=== PATIENT | female | born 1985 | race Caucasian/White ===

== ENCOUNTER 2016-10-27 22:18 | Emergency (ER) | payer MEDICARE ==
[2016-10-27] MEDS ORDERED: Sodium Chloride 0.9% 1000 ML 1,000 ML IV STA (22:45)
[2016-10-27] MEDS ORDERED: TORAdol 30 mg Injection IV ONE (22:45)
[2016-10-27] MEDS ORDERED: Ativan 2 MG/1 ML VIAL IV ONE (22:45)
[2016-10-27] MEDS ORDERED: TORAdol 30 mg Injection ONE (22:54)
[2016-10-27] MEDS ORDERED: Sodium Chloride 0.9% 1000 ML 1,000 ML ONE (22:54)
[2016-10-27] MEDS ORDERED: Ativan 2 MG/1 ML VIAL ONE (22:54)
[2016-10-27 23:30] LABS: BASOPHIL % 0.2 % (0.0-0.4); Eosinophil % 2.7 % (0.00-5.0); Granulocytes % 56.4 % (36.0-66.0); Lymphocytes % 33.3 % (24.0-44.0); Mean Cell Volume 91.6 fl (78-100); Monocytes % 7.4 % (0.0-12.0); Platelet Count 204 K/mm3 (150-450); Red Blood Count 3.79 M/mm3 (4.1-5.4); Red Cell Distribution Width 12.4 % (11.5-14.0); White Blood Count 4.9 K/mm3 (4.0-10.5)
[2016-10-27 23:36] LABS: COMPLETE URINE MICROSCOPIC? NO; Collection Type CATH; Ph 5.5 (5-6)
--- NOTE | 2016-10-27 23:39 | ERPHSYRPT ---
- History of Present Illness Time Seen by Provider: 10/27/16 22:39 Source: family ( and sister), EMS Patient Subjective Stated Complaint: per pt's sister, pt has seizure like epidoses when she has pain. has had 15+ episodes today since 2030 Triage Nursing Assessment: pt in bed with eyes closed. does not respond to verbal. pt not able to follow commands. family in [facility] states this is normal for pt when she has these episodes and she will remain nonresponsive until she has pain relief. Physician History: CC: seizure episode Hx: [address] Da Silva and [facility] GI Dr Reyes. She has hx of nonepileptiform seizures diagnosed with video EEG at [facility]. 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 She does not take narcotics so as not to worsened sphincter dysfunction. She usually received ativan and toradol and improves. She went to [facility] and began having intermittent seizure episodes. No provoking incident or stress. She has several children at home. She is accompanied here by sister and . No fall or injury. No recent fever, headache, vomiting. The episodes today are consistent with those of the past. Surg: BTL, GB, vaginal reconstruction Social: Blind form premature macular degeneration ILL: hypothyroidism Allergies/Adverse Reactions: No Known Drug Allergies Allergy (Unverified 10/27/16 22:37) Home Medications: Levothyroxine Sodium 50 Mcg [Synthroid 50 Mcg] 50 mcg PO DAILY 10/27/16 [ History] Hx Tetanus, Diphtheria Vaccination/Date Given: Yes Hx Influenza Vaccination/Date Given: No Hx Pneumococcal Vaccination/Date Given: No Immunizations Up to Date: Yes - Review of Systems Constitutional: No Fever, No Chills Eyes: No Symptoms Ears, Nose, & Throat: No Symptoms Respiratory: No Cough, No Dyspnea Cardiac: No Chest Pain, No Syncope Abdominal/Gastrointestinal: Abdominal Pain, No Nausea, No Vomiting, No Diarrhea Genitourinary Symptoms: No Dysuria Skin: No Rash Neurological: Seizure, No Focal Weakness, No Headache, No Parasthesia All Other Systems: Reviewed and Negative (from family) - Past Medical History Pertinent Past Medical History: Yes Neurological History: Other Endocrine Medical History: Hyperthyroidism Other Medical History: 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 legally blind - Past Surgical History Past Surgical History: Yes Female Surgical History: Tubal Ligation, Other Other Surgical History: vaginal reconstruction - Social History Smoking Status: Never smoker Exposure to second hand smoke: No Drug Use: none Patient Lives Alone: No - Female History Hx Last Menstrual Period: unsure - Nursing Vital Signs Nursing Vital Signs: Initial Vital Signs Temperature 97.9 F Temperature Source Axillary Pulse Rate 88 Respiratory Rate 16 Blood Pressure 118/72 - Physical Exam General Appearance: alert Eye Exam: PERRL/EOMI, other (fluttering of eyes) Ears, Nose, Throat Exam: normal ENT inspection, moist mucous membranes Neck Exam: normal inspection, non-tender, supple Respiratory Exam: normal breath sounds, lungs clear Cardiovascular Exam: regular rate/rhythm, No murmur Gastrointestinal/Abdomen Exam: soft, No tenderness, No distention, No mass, No guarding Back Exam: normal inspection, normal range of motion Extremity Exam: normal inspection, normal range of motion Neurologic Exam: alert, other (she is poorly responsive but does open eyes, squeeze hands and move feet to command.) Skin Exam: warm, dry, No rash SpO2 Interpretation: normal SpO2: 98 Oxygen Delivery: Room Air - Course Nursing assessment & vital signs reviewed: Yes EKG Interpreted by Me: RATE (75), Sinus Rhythm, NORMAL AXIS, NORMAL INTERVALS ( QTc 453), NORMAL QRS, NORMAL ST-T Ordered Tests: Active Orders 24 hr Category Date Time Status Cath for Specimen-Straight STAT Care 10/27/16 22:45 Active EKG-ER Only STAT Care 10/27/16 22:45 Active IV Insertion STAT Care 10/27/16 22:45 Active CBC W DIFF Stat Lab 10/27/16 23:24 Completed CK-Creatinine Phosphokinase Stat Lab 10/27/16 23:24 Completed CMP Stat Lab 10/27/16 23:24 Completed HCG QUALITATIVE,SERUM Stat Lab 10/27/16 23:24 Completed LIPASE Stat Lab 10/27/16 23:24 Completed Lactic Acid Urgent Lab 10/27/16 23:10 Completed UA Stat Lab 10/27/16 23:25 Completed Urine Triage Profile Stat Lab 10/27/16 23:25 Completed Medication Summary Discontinued Medications Generic Name Dose Route Start Last Admin Trade Name Freq PRN Reason Stop Dose Admin Sodium Chloride 1,000 mls @ 999 mls/hr 10/27/16 22:45 10/27/16 22:55 Sodium Chloride 0.9% 1000 Ml IV 10/27/16 23:45 999 mls/hr .Q1H1M STA Administration Sodium Chloride Confirm 10/27/16 22:54 Sodium Chloride 0.9% 1000 Ml Administered 10/27/16 22:55 Dose 1,000 mls @ ud .ROUTE .STK-MED ONE Ketorolac Tromethamine 30 mg 10/27/16 22:45 10/27/16 22:55 Toradol 30 Mg Injection IV 10/27/16 22:46 30 mg STAT ONE Administration Ketorolac Tromethamine Confirm 10/27/16 22:54 Toradol 30 Mg Injection Administered 10/27/16 22:55 Dose 30 mg .ROUTE .STK-MED ONE Lorazepam 1 mg 10/27/16 22:45 10/27/16 22:55 Ativan 2 Mg/1 Ml Vial IV 10/27/16 22:46 1 mg STAT ONE Administration Lorazepam Confirm 10/27/16 22:54 Ativan 2 Mg/1 Ml Vial Administered 10/27/16 22:55 Dose 2 mg .ROUTE .STK-MED ONE Lab/Rad Data: Laboratory Result Diagrams 10/27/16 23:24 10/27/16 23:24 Laboratory Results 10/27/16 10/27/16 10/27/16 Range/Units 23:25 23:25 23:24 WBC (4.0-10.5) K/mm3 RBC (4.1-5.4) M/mm3 Hgb (12.0-16.0) gm/dl Hct (35-47) % MCV (78-100) fl MCH (26-32) pg MCHC (32-36) g/dl RDW (11.5-14.0) % Plt Count (150-450) K/mm3 MPV (6-9.5) fl Gran % (36.0-66.0) % Lymphocytes % (24.0-44.0) % Monocytes % (0.0-12.0) % Eosinophils % (0.00-5.0) % Basophils % (0.0-0.4) % Basophils # (0-0.4) Sodium (136-145) mEq/L Potassium (3.5-5.1) mEq/L Chloride (98-107) mEq/L Carbon Dioxide (21-32) mEq/L Anion Gap (5-15) MEQ/L BUN (9-20) mg/dL Creatinine (0.55-1.30) mg/dl Estimated GFR ML/MIN Glucose (70-110) MG/DL Lactic Acid (0.4-2.0) Calcium (8.5-10.1) mg/dL Total Bilirubin (0.2-1.0) mg/dL AST (15-37) U/L ALT (12-78) U/L Alkaline Phosphatase (46-116) U/L Creatine Kinase (26-192) U/L Serum Total Protein (6.4-8.2) gm/dL Albumin (3.4-5.0) g/dL Lipase (73-393) U/L Serum , Qual NEGATIVE (Negative) Ur Collection Type CATH Urine Color YELLOW (YELLOW) Urine Appearance CLEAR (CLEAR) Urine pH 5.5 (5-6) Ur Specific [place] <=1.005 (1.005-1.025) Urine Protein NEGATIVE (Negative) Urine Glucose (UA) NEGATIVE (NEGATIVE) mg/dL Urine Ketones NEGATIVE (NEGATIVE) Urine Nitrite NEGATIVE (NEGATIVE) Urine Bilirubin NEGATIVE (NEGATIVE) Urine Urobilinogen 0.2 (0-1) mg/dL Urine WBC (Auto) NEGATIVE (NEGATIVE) Urine RBC (Auto) NEGATIVE (0-5) Leroy/ul Urine Opiates Level NEG. (NEGATIVE) Ur Methadone NEG. (NEGATIVE) Urine Barbiturates NEG. (NEGATIVE) Ur Phencyclidine (PCP) NEG. (NEGATIVE) Urine Amphetamine NEG. (NEGATIVE) U Benzodiazepine Level NEG. (NEGATIVE) Urine Cocaine NEG. (NEGATIVE) Urine Marijuana (THC) NEG. (NEGATIVE) Specimen Received 10/27/16 0014 10/27/16 10/27/16 10/27/16 Range/Units 23:24 23:24 23:10 WBC 4.9 (4.0-10.5) K/mm3 RBC 3.79 L (4.1-5.4) M/mm3 Hgb 11.9 L (12.0-16.0) gm/dl Hct 34.7 L (35-47) % MCV 91.6 (78-100) fl MCH 31.3 (26-32) pg MCHC 34.3 (32-36) g/dl RDW 12.4 (11.5-14.0) % Plt Count 204 (150-450) K/mm3 MPV 11.0 H (6-9.5) fl Gran % 56.4 (36.0-66.0) % Lymphocytes % 33.3 (24.0-44.0) % Monocytes % 7.4 (0.0-12.0) % Eosinophils % 2.7 (0.00-5.0) % Basophils % 0.2 (0.0-0.4) % Basophils # 0.01 (0-0.4) Sodium 144 (136-145) mEq/L Potassium 3.6 (3.5-5.1) mEq/L Chloride 108 H (98-107) mEq/L Carbon Dioxide 25.3 (21-32) mEq/L Anion Gap 14.2 (5-15) MEQ/L BUN 10 (9-20) mg/dL Creatinine 0.78 (0.55-1.30) mg/dl Estimated GFR > 60 ML/MIN Glucose 104 (70-110) MG/DL Lactic Acid 2.3 H (0.4-2.0) Calcium 8.4 L (8.5-10.1) mg/dL Total Bilirubin 0.6 (0.2-1.0) mg/dL AST 15 (15-37) U/L ALT 14 (12-78) U/L Alkaline Phosphatase 37 L (46-116) U/L Creatine Kinase 67 (26-192) U/L Serum Total Protein 7.1 (6.4-8.2) gm/dL Albumin 3.6 (3.4-5.0) g/dL Lipase 301 (73-393) U/L Serum , Qual (Negative) Ur Collection Type Urine Color (YELLOW) Urine Appearance (CLEAR) Urine pH (5-6) Ur Specific [place] (1.005-1.025) Urine Protein (Negative) Urine Glucose (UA) (NEGATIVE) mg/dL Urine Ketones (NEGATIVE) Urine Nitrite (NEGATIVE) Urine Bilirubin (NEGATIVE) Urine Urobilinogen (0-1) mg/dL Urine WBC (Auto) (NEGATIVE) Urine RBC (Auto) (0-5) Leroy/ul Urine Opiates Level (NEGATIVE) Ur Methadone (NEGATIVE) Urine Barbiturates (NEGATIVE) Ur Phencyclidine (PCP) (NEGATIVE) Urine Amphetamine (NEGATIVE) U Benzodiazepine Level (NEGATIVE) Urine Cocaine (NEGATIVE) Urine Marijuana (THC) (NEGATIVE) Specimen Received - Progress Progress Note: 10/27/16 23:39 Pt improving with IVF, toradol and ativan. REcords from [facility] reviewed. 10/28/16 00:04 Pt states she is better. She is talking and visiting with family. This appears to be nonepileptiform seizures. Normal labs. She reports hx of sphincter of oddi dysfunction. Will release with instructions. Family and patient comfortable with plan. Counseled pt/family regarding: lab results, diagnosis, need for follow-up, rad results - Departure Time of Disposition: 00:05 Departure Disposition: Home Clinical Impression: nonepileptiform seizures, hx sphincter of oddi dysfunction Condition: Stable Critical Care Time: No Referrals: THOMAS REDD MD [Primary Care Provider] - NICOLE DA SILVA MD [Family Provider] - Instructions: Seizure (Not Epilepsy/Seizure Disorder) Additional Instructions: No driving, climbing, swimming. Have someone help with child care nurse. Stay with family. Return for problems or concerns. Follow up with your physician tomorrow.
[2016-10-27 23:44] LABS: Mean Corpuscular Hemoglobin 31.3 pg (26-32)
[2016-10-27 23:50] LABS: ALBUMIN 3.6 g/dL (3.4-5.0); ALKALINE PHOSPHATASE 37 U/L (46-116); ANION GAP 14.2 MEQ/L (5-15); BILIRUBIN,TOTAL 0.6 mg/dL (0.2-1.0); BLOOD UREA NITROGEN 10 mg/dL (9-20); CHLORIDE 108 mEq/L (98-107); Carbon Dioxide 25.3 mEq/L (21-32); Glucose 104 MG/DL (70-110); LIPASE 301 U/L (73-393); Potassium 3.6 mEq/L (3.5-5.1); SGOT/AST 15 U/L (15-37); SGPT/ALT 14 U/L (12-78); SODIUM 144 mEq/L (136-145); Total Protein 7.1 gm/dL (6.4-8.2)
[2016-10-28] MEDS ORDERED: Lactated Ringers 1,000 ML IV ONE ×2 (00:17→00:23)
[2016-10-28 01:07] VITALS: O2SAT 99
[2016-10-28 02:02] VITALS: BP 103/61; PULSE 63
== END 2016-10-28 02:13 | disposition home or self-care (01) ==
LOC: ED 22:18
DX: G40.409 Other generalized epilepsy and epileptic syndromes, not intractable, without status epilepticus (principal); Z87.898 Personal history of other specified conditions; E05.90 Thyrotoxicosis, unspecified without thyrotoxic crisis or storm; H54.8 Legal blindness, as defined in USA
CPT/HCPCS: 96374; 99283; 96360; 96361; 93005; 81002; 36415; 84703; 82550; 83690; 80307; 85025; 80053; 83605; P9612; J1885; J2060

== ENCOUNTER 2018-04-15 22:34 | Observation (INO) | payer MEDICARE ==
[2018-04-15] MEDS ORDERED: Pepcid 20 MG VIAL IV ONE ×2 (22:50→23:11)
[2018-04-15] MEDS ORDERED: SUBLIMAZE 100 MCG/2 ML IV ONE (22:50)
[2018-04-15] MEDS ORDERED: Zofran 4 MG/2 ML VIAL IV ONE (22:50)
[2018-04-15] MEDS ORDERED: Sodium Chloride 0.9% 1000 ML 1,000 ML IV STA (22:50)
--- NOTE | 2018-04-15 22:55 | ERPHSYRPT ---
- History of Present Illness Time Seen by Provider: 04/15/18 22:45 Historian: patient Exam Limitations: no limitations Patient Subjective Stated Complaint: Pt states "I had sphincter oddi and in july of last year I had a sphincterotomy to try and alleviate my problems and now I have a mild pancreatitis. My stomach has been hurting for 3 days and I cannot keep anything down. I have not eaten a meal in 3 days, just little bites of things here and there." Triage Nursing Assessment: Pt alert and oriented X 3, skin pwd. Pt ambulates with an upright steady gait, able to speak in clear full sentences. Pt holding abdomen. Physician History: Pt started c/o upper abdominal pain, nausea, vomiting 3 days ago. She denies fever, chills, diarrhea, vomiting blood or coffeeground material. She has been diagnosed with dysfunctional Oddi sphincter, pancreatitis, underwent cholecystectomy and in 07/2017 endoscopic Oddi sphincerotomy. Timing/Duration: day(s) (3) Activities at Onset: none Quality: cramping, sharpness Abdominal Pain Onset Location: LUQ, epigastric Pain Radiation: back Severity of Pain-Max: severe Severity of Pain-Current: severe Modifying Factors: Improves With: nothing Associated Symptoms: loss of appetite, nausea, vomiting Previous symptoms: same symptoms as today Allergies/Adverse Reactions: No Known Drug Allergies Allergy (Unverified 10/27/16 22:37) Home Medications: Levothyroxine Sodium 50 Mcg [Synthroid 50 Mcg] 50 mcg PO DAILY 10/27/16 [ History] Hx Tetanus, Diphtheria Vaccination/Date Given: No Hx Influenza Vaccination/Date Given: No Hx Pneumococcal Vaccination/Date Given: No Immunizations Up to Date: Yes - Review of Systems Constitutional: No Symptoms Abdominal/Gastrointestinal: Abdominal Pain, Nausea, Vomiting All Other Systems: Reviewed and Negative - Past Medical History Pertinent Past Medical History: Yes Neurological History: Other Endocrine Medical History: Hyperthyroidism Other Medical History: 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 legally blind - Past Surgical History Past Surgical History: Yes Female Surgical History: Tubal Ligation, Other Other Surgical History: vaginal reconstruction,. tubal. sphincterotomy - Social History Smoking Status: Never smoker Exposure to second hand smoke: No Drug Use: none Patient Lives Alone: No - Female History Hx Last Menstrual Period: 04/07/2018 Hx Now: No - Nursing Vital Signs Nursing Vital Signs: Initial Vital Signs Temperature 98.4 F 04/15/18 22:38 Pulse Rate 66 04/15/18 22:38 Respiratory Rate 16 04/15/18 22:38 Blood Pressure 105/62 04/15/18 22:38 O2 Sat by Pulse Oximetry 100 04/15/18 22:38 Pain Scale Pain Intensity 8 - Physical Exam General Appearance: no apparent distress Eye Exam: eyes nml inspection Ears, Nose, Throat Exam: normal ENT inspection, moist mucous membranes Neck Exam: normal inspection, non-tender Respiratory Exam: normal breath sounds, lungs clear, airway intact Cardiovascular Exam: regular rate/rhythm, normal heart sounds, normal peripheral pulses, No murmur Gastrointestinal/Abdomen Exam: soft, normal bowel sounds, tenderness (diffuse, upper abdominal), No distention, No mass, No guarding, No ecchymosis, No pulsatile mass, No rebound, No hernia, No organomegaly Pelvic Exam: not done Back Exam: normal inspection, CVA tenderness (bilateral) Extremity Exam: normal inspection, No calf tenderness, No pedal edema Neurologic Exam: alert, oriented x 3, normal mood/affect Skin Exam: normal color, warm, dry, No rash Lymphatic Exam: No adenopathy SpO2 Interpretation: normal SpO2: 100 Oxygen Delivery: Room Air - Course Nursing assessment & vital signs reviewed: Yes EKG Interpreted by Me: RATE (75/min), NORMAL AXIS, NORMAL INTERVALS, NORMAL ST-T , Other (repeat Ek:46 AM: ) - CT Exams Abdomen/Pelvis CT Interpretation: Tele-radiologist Report, Other (mesenteric edema) Ordered Tests: Active Orders 24 hr Category Date Time Status EKG-ER Only STAT Care 04/15/18 22:50 Active EKG-ER Only STAT Care 04/16/18 01:24 Active IV Insertion STAT Care 04/15/18 22:50 Active ABDOMEN AND PELVIS W CONTRAST [CT] Stat Exams 04/15/18 22:50 Taken AMYLASE Stat Lab 04/15/18 23:10 Completed CBC W DIFF Stat Lab 04/15/18 23:10 Completed CMP Stat Lab 04/15/18 23:10 Completed HCG QUALITATIVE,SERUM Stat Lab 04/15/18 23:10 Completed LIPASE Stat Lab 04/15/18 23:10 Completed Lactic Acid Stat Lab 04/15/18 23:05 Completed TROPONIN Q3H Lab 04/15/18 23:10 Completed TROPONIN Q3H Lab 04/16/18 02:00 Received TROPONIN Q3H Lab 04/16/18 05:00 Ordered TROPONIN Q3H Lab 04/16/18 08:00 Ordered TROPONIN Q3H Lab 04/16/18 11:00 Ordered UA W/RFX UR CULTURE Stat Lab 04/15/18 22:50 Completed Urine Triage Profile Stat Lab 04/15/18 22:50 Completed Medication Summary Discontinued Medications Generic Name Dose Route Start Last Admin Trade Name Deshaunq PRN Reason Stop Dose Admin Famotidine 20 mg 04/15/18 22:50 04/15/18 23:20 Pepcid 20 Mg Vial IV 04/15/18 22:51 20 mg STAT ONE Administration Famotidine Confirm 04/15/18 23:11 Pepcid 20 Mg Vial Administered 04/15/18 23:12 Dose 20 mg IV .STK-MED ONE Fentanyl Citrate 50 mcg 04/15/18 22:50 04/15/18 23:26 Sublimaze 100 Mcg/2 Ml IV 04/15/18 22:51 25 mcg STAT ONE Administration Fentanyl Citrate Confirm 04/15/18 23:11 Sublimaze 100 Mcg/2 Ml Administered 04/15/18 23:12 Dose 100 mcg .ROUTE .STK-MED ONE Fentanyl Citrate Confirm 04/16/18 00:50 Sublimaze 100 Mcg/2 Ml Administered 04/16/18 00:51 Dose 100 mcg .ROUTE .STK-MED ONE Fentanyl Citrate 25 mcg 04/16/18 00:51 04/16/18 00:52 Sublimaze 100 Mcg/2 Ml IV 04/16/18 00:52 25 mcg STAT ONE Administration Sodium Chloride 1,000 mls @ 999 mls/hr 04/15/18 22:50 04/16/18 00:30 Sodium Chloride 0.9% 1000 Ml IV 04/15/18 23:50 Infused .Q1H1M STA Infusion Sodium Chloride Confirm 04/15/18 23:12 Sodium Chloride 0.9% 1000 Ml Administered 04/15/18 23:13 Dose 1,000 mls @ ud .ROUTE .STK-MED ONE Ondansetron HCl 4 mg 04/15/18 22:50 04/15/18 23:22 Zofran 4 Mg/2 Ml Vial IV 04/15/18 22:51 4 mg STAT ONE Administration Ondansetron HCl Confirm 04/15/18 23:11 Zofran 4 Mg/2 Ml Vial Administered 04/15/18 23:12 Dose 4 mg .ROUTE .STK-MED ONE Lab/Rad Data: Laboratory Result Diagrams 04/15/18 23:10 04/15/18 23:10 Laboratory Results 04/15/18 04/15/18 04/15/18 Range/Units 23:10 23:10 23:10 WBC (4.0-10.5) K/mm3 RBC (4.1-5.4) M/mm3 Hgb (12.0-16.0) gm/dl Hct (35-47) % MCV (78-100) fl MCH (26-32) pg MCHC (32-36) g/dl RDW (11.5-14.0) % Plt Count (150-450) K/mm3 MPV (6-9.5) fl Gran % (36.0-66.0) % Eos # (Auto) (0-0.5) Absolute Lymphs (auto) (1.0-4.6) Absolute Monos (auto) (0.0-1.3) Lymphocytes % (24.0-44.0) % Monocytes % (0.0-12.0) % Eosinophils % (0.00-5.0) % Basophils % (0.0-0.4) % Absolute Granulocytes (1.4-6.9) Basophils # (0-0.4) Sodium 138 (137-145) mmol/L Potassium 3.7 (3.5-5.1) mmol/L Chloride 103 (98-107) mmol/L Carbon Dioxide 27 (22-30) mmol/L Anion Gap 11.8 (5-15) MEQ/L BUN 14 (7-17) mg/dL Creatinine 0.67 (0.52-1.04) mg/dL Estimated GFR > 60.0 ML/MIN Glucose 99 (74-106) mg/dL Lactic Acid (0.4-2.0) Calcium 9.3 (8.4-10.2) mg/dL Total Bilirubin 2.00 H (0.2-1.3) mg/dL AST 21 (14-36) U/L ALT 17 (0-35) U/L Alkaline Phosphatase 48 (38-126) U/L Troponin I < 0.012 (0.000-0.034) ng/mL Serum Total Protein 7.6 (6.3-8.2) g/dL Albumin 4.3 (3.5-5.0) g/dL Amylase 66 (30-110) U/L Lipase 138 (23-300) U/L Serum , Qual NEGATIVE (Negative) Ur Collection Type Urine Color (YELLOW) Urine Appearance (CLEAR) Urine pH (5-6) Ur Specific [place] (1.005-1.025) Urine Protein (Negative) Urine Ketones (NEGATIVE) Urine Blood (0-5) Leroy/ul Urine Nitrite (NEGATIVE) Urine Bilirubin (NEGATIVE) Urine Urobilinogen (0-1) mg/dL Ur Leukocyte Esterase (NEGATIVE) Urine Culture Reflexed (NO) Urine Glucose (NEGATIVE) mg/dL Urine Opiates Level (NEGATIVE) Ur Methadone (NEGATIVE) Urine Barbiturates (NEGATIVE) Ur Phencyclidine (PCP) (NEGATIVE) Urine Amphetamine (NEGATIVE) U Benzodiazepine Level (NEGATIVE) Urine Cocaine (NEGATIVE) Urine Marijuana (THC) (NEGATIVE) Specimen Received 04/15/18 04/15/18 04/15/18 Range/Units 23:10 23:05 22:50 WBC 4.1 (4.0-10.5) K/mm3 RBC 3.96 L (4.1-5.4) M/mm3 Hgb 12.8 (12.0-16.0) gm/dl Hct 35.8 (35-47) % MCV 90.4 (78-100) fl MCH 32.3 H (26-32) pg MCHC 35.8 (32-36) g/dl RDW 12.0 (11.5-14.0) % Plt Count 199 (150-450) K/mm3 MPV 10.9 H (6-9.5) fl Gran % 52.5 (36.0-66.0) % Eos # (Auto) 0.06 (0-0.5) Absolute Lymphs (auto) 1.43 (1.0-4.6) Absolute Monos (auto) 0.44 (0.0-1.3) Lymphocytes % 35.0 (24.0-44.0) % Monocytes % 10.8 (0.0-12.0) % Eosinophils % 1.5 (0.00-5.0) % Basophils % 0.2 (0.0-0.4) % Absolute Granulocytes 2.14 (1.4-6.9) Basophils # 0.01 (0-0.4) Sodium (137-145) mmol/L Potassium (3.5-5.1) mmol/L Chloride (98-107) mmol/L Carbon Dioxide (22-30) mmol/L Anion Gap (5-15) MEQ/L BUN (7-17) mg/dL Creatinine (0.52-1.04) mg/dL Estimated GFR ML/MIN Glucose (74-106) mg/dL Lactic Acid 0.8 (0.4-2.0) Calcium (8.4-10.2) mg/dL Total Bilirubin (0.2-1.3) mg/dL AST (14-36) U/L ALT (0-35) U/L Alkaline Phosphatase (38-126) U/L Troponin I (0.000-0.034) ng/mL Serum Total Protein (6.3-8.2) g/dL Albumin (3.5-5.0) g/dL Amylase (30-110) U/L Lipase (23-300) U/L Serum , Qual (Negative) Ur Collection Type Urine Color (YELLOW) Urine Appearance (CLEAR) Urine pH (5-6) Ur Specific [place] (1.005-1.025) Urine Protein (Negative) Urine Ketones (NEGATIVE) Urine Blood (0-5) Leroy/ul Urine Nitrite (NEGATIVE) Urine Bilirubin (NEGATIVE) Urine Urobilinogen (0-1) mg/dL Ur Leukocyte Esterase (NEGATIVE) Urine Culture Reflexed (NO) Urine Glucose (NEGATIVE) mg/dL Urine Opiates Level POSITIVE (NEGATIVE) Ur Methadone NEGATIVE (NEGATIVE) Urine Barbiturates NEGATIVE (NEGATIVE) Ur Phencyclidine (PCP) NEGATIVE (NEGATIVE) Urine Amphetamine NEGATIVE (NEGATIVE) U Benzodiazepine Level NEGATIVE (NEGATIVE) Urine Cocaine NEGATIVE (NEGATIVE) Urine Marijuana (THC) NEGATIVE (NEGATIVE) Specimen Received 04/15/18 Range/Units 22:50 WBC (4.0-10.5) K/mm3 RBC (4.1-5.4) M/mm3 Hgb (12.0-16.0) gm/dl Hct (35-47) % MCV (78-100) fl MCH (26-32) pg MCHC (32-36) g/dl RDW (11.5-14.0) % Plt Count (150-450) K/mm3 MPV (6-9.5) fl Gran % (36.0-66.0) % Eos # (Auto) (0-0.5) Absolute Lymphs (auto) (1.0-4.6) Absolute Monos (auto) (0.0-1.3) Lymphocytes % (24.0-44.0) % Monocytes % (0.0-12.0) % Eosinophils % (0.00-5.0) % Basophils % (0.0-0.4) % Absolute Granulocytes (1.4-6.9) Basophils # (0-0.4) Sodium (137-145) mmol/L Potassium (3.5-5.1) mmol/L Chloride (98-107) mmol/L Carbon Dioxide (22-30) mmol/L Anion Gap (5-15) MEQ/L BUN (7-17) mg/dL Creatinine (0.52-1.04) mg/dL Estimated GFR ML/MIN Glucose (74-106) mg/dL Lactic Acid (0.4-2.0) Calcium (8.4-10.2) mg/dL Total Bilirubin (0.2-1.3) mg/dL AST (14-36) U/L ALT (0-35) U/L Alkaline Phosphatase (38-126) U/L Troponin I (0.000-0.034) ng/mL Serum Total Protein (6.3-8.2) g/dL Albumin (3.5-5.0) g/dL Amylase (30-110) U/L Lipase (23-300) U/L Serum , Qual (Negative) Ur Collection Type CLEAN CATCH Urine Color YELLOW (YELLOW) Urine Appearance SLIGHTLY CLOUDY (CLEAR) Urine pH 5.0 (5-6) Ur Specific [place] 1.020 (1.005-1.025) Urine Protein NEGATIVE (Negative) Urine Ketones MODERATE (NEGATIVE) Urine Blood NEGATIVE (0-5) Leroy/ul Urine Nitrite NEGATIVE (NEGATIVE) Urine Bilirubin NEGATIVE (NEGATIVE) Urine Urobilinogen NORMAL (0-1) mg/dL Ur Leukocyte Esterase NEGATIVE (NEGATIVE) Urine Culture Reflexed NO (NO) Urine Glucose NEGATIVE (NEGATIVE) mg/dL Urine Opiates Level (NEGATIVE) Ur Methadone (NEGATIVE) Urine Barbiturates (NEGATIVE) Ur Phencyclidine (PCP) (NEGATIVE) Urine Amphetamine (NEGATIVE) U Benzodiazepine Level (NEGATIVE) Urine Cocaine (NEGATIVE) Urine Marijuana (THC) (NEGATIVE) Specimen Received 04/15/18 1910 - Progress Progress: improved Progress Note: 04/16/18 02:[address] Da Silva, discussed our results and this patient's current condition , he agreed to admit her for observation, informed patient and her daughter and they agreed. Discussed with .: Joceline Will see patient in: hospital (observation) Counseled pt/family regarding: lab results, diagnosis, need for follow-up, rad results - Departure Time of Disposition: 02:28 Departure Disposition: Observation Clinical Impression: Vomiting Qualifiers: Vomiting type: unspecified Vomiting Intractability: non-intractable Nausea presence: with nausea Qualified Code(s): R11.2 - Nausea with vomiting, unspecified Condition: Stable Critical Care Time: No Referrals: NICOLE DA SILVA MD [Primary Care Provider] -
[2018-04-15] MEDS ORDERED: SUBLIMAZE 100 MCG/2 ML ONE (23:11)
[2018-04-15] MEDS ORDERED: Zofran 4 MG/2 ML VIAL ONE (23:11)
[2018-04-15] MEDS ORDERED: Sodium Chloride 0.9% 1000 ML 1,000 ML ONE (23:12)
[2018-04-15 23:16] LABS: BASOPHIL % 0.2 % (0.0-0.4); Basophil (Absolute #) 0.01 (0-0.4); Eosinophil % 1.5 % (0.00-5.0); Eosinophil (Absolute #) 0.06 (0-0.5); Granulocyte Absolute (ANC) 2.14 (1.4-6.9); Granulocytes % 52.5 % (36.0-66.0); Hematocrit 35.8 % (35-47); Hemoglobin 12.8 gm/dl (12.0-16.0); Lymphocyte (Absolute #) 1.43 (1.0-4.6); Mean Cell Volume 90.4 fl (78-100); Mean Corpuscular Hemoglobin 32.3 pg (26-32); Mean Corpuscular Hgb Concent. 35.8 g/dl (32-36); Mean Platelet Volume 10.9 fl (6-9.5); Monocyte (Absolute #) 0.44 (0.0-1.3); Monocytes % 10.8 % (0.0-12.0); Platelet Count 199 K/mm3 (150-450); Red Blood Count 3.96 M/mm3 (4.1-5.4); White Blood Count 4.1 K/mm3 (4.0-10.5)
[2018-04-15 23:26] LABS: Appearance SLIGHTLY CLOUDY (CLEAR); Glucose NEGATIVE (NEGATIVE); Leukocyte Esterase NEGATIVE (NEGATIVE); Nitrite NEGATIVE (NEGATIVE); Protein,Urine Dip NEGATIVE (Negative)
[2018-04-15 23:27] LABS: Bilirubin NEGATIVE (NEGATIVE); Blood NEGATIVE Ery/ul (0-5); Ketones MODERATE (NEGATIVE); Urobilinogen NORMAL mg/dL (0-1)
[2018-04-15 23:53] LABS: Amphetamine,Urine NEGATIVE (NEGATIVE); Barbiturate,Urine NEGATIVE (NEGATIVE); Benzodiazepine,Urine NEGATIVE (NEGATIVE); Cocaine,Urine NEGATIVE (NEGATIVE); Methadone,Urine NEGATIVE (NEGATIVE); Opiate,Urine POSITIVE (NEGATIVE); PCP,Urine NEGATIVE (NEGATIVE); THC,Urine NEGATIVE (NEGATIVE)
[2018-04-16 00:15] LABS: ALBUMIN 4.3 g/dL (3.5-5.0); ALKALINE PHOSPHATASE 48 U/L (38-126); AMYLASE 66 U/L (30-110); ANION GAP 11.8 MEQ/L (5-15); BLOOD UREA NITROGEN 14 mg/dL (7-17); CHLORIDE 103 mmol/L (98-107); Calcium 9.3 mg/dL (8.4-10.2); Carbon Dioxide 27 mmol/L (22-30); Creatinine 1 0.67 mg/dL (0.52-1.04); Glucose 99 mg/dL (74-106); LIPASE 138 U/L (23-300); Potassium 3.7 mmol/L (3.5-5.1); SGOT/AST 21 U/L (14-36); SGPT/ALT 17 U/L (0-35); SODIUM 138 mmol/L (137-145); Total Protein 7.6 g/dL (6.3-8.2)
[2018-04-16] MEDS ORDERED: SUBLIMAZE 100 MCG/2 ML ONE (00:50)
[2018-04-16] MEDS ORDERED: SUBLIMAZE 100 MCG/2 ML IV ONE (00:51)
[2018-04-16] MEDS: Sodium Chloride 0.9% 1000 ML 1,000 ML IV SCH ×3 (03:52→22:27)
[2018-04-16] MEDS: Norco 10/325 MG Tablet PO PRN ×3 (04:11→17:05)
[2018-04-16 05:45] LABS: BASOPHIL % 0.2 % (0.0-0.4); Basophil (Absolute #) 0.01 (0-0.4); Eosinophil % 2.2 % (0.00-5.0); Eosinophil (Absolute #) 0.09 (0-0.5); Granulocyte Absolute (ANC) 1.46 (1.4-6.9); Hematocrit 34.5 % (35-47); Hemoglobin 12.2 gm/dl (12.0-16.0); Lymphocyte (Absolute #) 2.16 (1.0-4.6); Lymphocytes % 51.8 % (24.0-44.0); Mean Cell Volume 91.3 fl (78-100); Mean Corpuscular Hgb Concent. 35.4 g/dl (32-36); Mean Platelet Volume 11.2 fl (6-9.5); Monocyte (Absolute #) 0.45 (0.0-1.3); Monocytes % 10.8 % (0.0-12.0); Platelet Count 172 K/mm3 (150-450); Red Blood Count 3.78 M/mm3 (4.1-5.4); White Blood Count 4.2 K/mm3 (4.0-10.5)
[2018-04-16 05:49] LABS: Mean Corpuscular Hemoglobin 32.2 pg (26-32)
[2018-04-16 06:01] LABS: ALBUMIN 3.4 g/dL (3.5-5.0); ALKALINE PHOSPHATASE 39 U/L (38-126); ANION GAP 11.1 MEQ/L (5-15); BLOOD UREA NITROGEN 10 mg/dL (7-17); CHLORIDE 107 mmol/L (98-107); Calcium 8.7 mg/dL (8.4-10.2); Carbon Dioxide 26 mmol/L (22-30); Creatinine 1 0.66 mg/dL (0.52-1.04); Glucose 81 mg/dL (74-106); Potassium 4.1 mmol/L (3.5-5.1); SGOT/AST 16 U/L (14-36); SGPT/ALT 14 U/L (0-35); SODIUM 140 mmol/L (137-145); Total Protein 6.3 g/dL (6.3-8.2)
--- NOTE | 2018-04-16 07:35 | XRAY ---
Indication: Abdominal pain, nausea, and vomiting. Pancreatitis. Multiple contiguous axial images obtained through the abdomen and pelvis using 80 cc Isovue 370 contrast only. Comparison: None Lung bases demonstrates minimal bibasilar dependent atelectasis and tiny right base calcified granuloma. No infiltrate or effusion. Heart is not enlarged. Noncontrasted stomach and bowel loops appear nonobstructed. A few left abdomen fluid distended small bowel loops with wall thickening and fluid leveling possible enteritis. Normal appendix. Previous cholecystectomy. 1.5 cm right ovary cyst. Splenic calcified granuloma. No free fluid/air. Remaining liver, pancreas, spleen, adrenal glands, kidneys, ureters, lateral, ureters, and aorta appear unremarkable. No pathologic retroperitoneal lymphadenopathy. Osseous structures intact. Impression: 1. Left abdomen fluid distended small bowel loops with wall thickening. Rule out enteritis. 2. Incidental dominant right ovary cyst and evidence for old granulomatous disease. Comment: Preliminary interpretation was made by [facility]. No critical discrepancy CTDI 15.32
[2018-04-16] MEDS: SUBLIMAZE 100 MCG/2 ML IV PRN ×3 (07:50→20:47)
[2018-04-16 08:51] LABS: AMYLASE 48 U/L (30-110); LIPASE 104 U/L (23-300)
--- NOTE | 2018-04-16 09:26 | PCM.HP ---
History of Present Illness - Chief Complaint Chief Complaint: Vomiting History of Present Illness: is a 32 year old female.Pt started c/o upper abdominal pain, nausea, vomiting 3 days ago. She denies fever, chills, diarrhea, vomiting blood or coffeeground material. She has been diagnosed with dysfunctional Oddi sphincter , pancreatitis, underwent cholecystectomy and in 07/2017 endoscopic Oddi sphincerotomy. - Review of Systems Constitutional: No Fever, No Chills Eyes: No Symptoms Ears, Nose, & Throat: No Symptoms Respiratory: No Cough, No Short Of Breath Cardiac: No Chest Pain, No Edema, No Syncope Abdominal/Gastrointestinal: No Abdominal Pain, No Nausea, No Vomiting, No Diarrhea Genitourinary Symptoms: No Dysuria Musculoskeletal: No Back Pain, No Neck Pain Skin: No Rash Neurological: No Dizziness, No Focal Weakness, No Sensory Changes Psychological: No Symptoms Endocrine: No Symptoms Hematologic/Lymphatic: No Symptoms Immunological/Allergic: No Symptoms Medications & Allergies Home Medications: Home Medication List Levothyroxine Sodium 50 Mcg [Synthroid 50 Mcg] 50 mcg PO DAILY 10/27/16 [ History Confirmed 04/16/18] Hydrocodone Bit/Acetaminophen [[place] 5-325 Tablet] 1 tablet PO Q4-6HPRN PRN [History Confirmed 04/16/18] Allergies/Adverse Reactions: Allergies Allergy/AdvReac Type Severity Reaction Status Date / Time No Known Drug Allergies Allergy Verified 04/16/18 03:08 - Past Medical History Past Medical History: Yes Neurological History: Other ENT History: Other Cardiac History: No Pertinent History Respiratory History: No Pertinent History Endocrine Medical History: Hypothyroidism Musculoskelatal History: No Pertinent History GI Medical History: Other History: No Pertinent History Pyscho-Social History: No Pertinent History Reproductive Disorders: No Pertinent History Comment: 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 legally blind - Female History Hx Last Menstrual Period: 04/07/2018 Are you now?: No - Past Surgical History Past Surgical History: Yes Neuro Surgical History: No Pertinent History Cardiac History: No Pertinent History Respiratory Surgery: No Pertinent History GI Surgical History: Other Genitourinary Surgical Hx: No Pertinent History Musculskeletal Surgical Hx: No Pertinent History Female Surgical History: Tubal Ligation, Other Other Surgical History: vaginal reconstruction. tubal. sphincterotomy - Social History Smoking Status: Never smoker Exposure to second hand smoke: No Alcohol: None Drug Use: none - Physical Exam Vital Signs: Vital Signs - 24 hr Temp Pulse Resp BP Pulse Ox 04/16/18 07:45 102/68 04/16/18 07:03 97.9 F 57 L 18 88/58 98 04/16/18 03:20 98.0 F 67 16 102/58 97 04/16/18 02:28 100 04/16/18 00:40 69 16 107/58 100 04/15/18 23:46 62 16 109/69 100 04/15/18 23:25 68 16 110/73 98 04/15/18 22:38 98.4 F 66 16 105/62 100 General Appearance: no apparent distress, alert Neurologic Exam: alert, oriented x 3, cooperative, normal mood/affect, nml cerebellar function, nml station & gait, sensation nml, No motor deficits Eye Exam: PERRL/EOMI, eyes nml inspection Ears, Nose, Throat Exam: normal ENT inspection, TMs normal, pharynx normal, moist mucous membranes Neck Exam: normal inspection, non-tender, supple, full range of motion Respiratory Exam: normal breath sounds, lungs clear, No respiratory distress Cardiovascular Exam: regular rate/rhythm, normal heart sounds, normal peripheral pulses Gastrointestinal/Abdomen Exam: soft, normal bowel sounds, No tenderness, No mass Back Exam: normal inspection, normal range of motion, No CVA tenderness, No vertebral tenderness Extremity Exam: normal inspection, normal range of motion, pelvis stable Skin Exam: normal color, warm, dry, No rash Lymphatic Exam: No adenopathy Results - Labs Lab/Micro Results: Lab Results-Last 24 Hours 04/15/18 04/15/18 04/15/18 Range/Units 22:50 22:50 23:05 WBC (4.0-10.5) K/mm3 RBC (4.1-5.4) M/mm3 Hgb (12.0-16.0) gm/dl Hct (35-47) % MCV (78-100) fl MCH (26-32) pg MCHC (32-36) g/dl RDW (11.5-14.0) % Plt Count (150-450) K/mm3 MPV (6-9.5) fl Gran % (36.0-66.0) % Eos # (Auto) (0-0.5) Absolute Lymphs (auto) (1.0-4.6) Absolute Monos (auto) (0.0-1.3) Lymphocytes % (24.0-44.0) % Monocytes % (0.0-12.0) % Eosinophils % (0.00-5.0) % Basophils % (0.0-0.4) % Absolute Granulocytes (1.4-6.9) Basophils # (0-0.4) Sodium (137-145) mmol/L Potassium (3.5-5.1) mmol/L Chloride (98-107) mmol/L Carbon Dioxide (22-30) mmol/L Anion Gap (5-15) MEQ/L BUN (7-17) mg/dL Creatinine (0.52-1.04) mg/dL Estimated GFR ML/MIN Glucose (74-106) mg/dL Lactic Acid 0.8 (0.4-2.0) Calcium (8.4-10.2) mg/dL Total Bilirubin (0.2-1.3) mg/dL AST (14-36) U/L ALT (0-35) U/L Alkaline Phosphatase (38-126) U/L Troponin I (0.000-0.034) ng/mL Serum Total Protein (6.3-8.2) g/dL Albumin (3.5-5.0) g/dL Amylase (30-110) U/L Lipase (23-300) U/L TSH 3rd Generation (0.47-4.68) mIU/L Serum , Qual (Negative) Ur Collection Type CLEAN CATCH Urine Color YELLOW (YELLOW) Urine Appearance SLIGHTLY CLOUDY (CLEAR) Urine pH 5.0 (5-6) Ur Specific Shunk 1.020 (1.005-1.025) Urine Protein NEGATIVE (Negative) Urine Ketones MODERATE (NEGATIVE) Urine Blood NEGATIVE (0-5) Leroy/ul Urine Nitrite NEGATIVE (NEGATIVE) Urine Bilirubin NEGATIVE (NEGATIVE) Urine Urobilinogen NORMAL (0-1) mg/dL Ur Leukocyte Esterase NEGATIVE (NEGATIVE) Urine Culture Reflexed NO (NO) Urine Glucose NEGATIVE (NEGATIVE) mg/dL Urine Opiates Level POSITIVE (NEGATIVE) Ur Methadone NEGATIVE (NEGATIVE) Urine Barbiturates NEGATIVE (NEGATIVE) Ur Phencyclidine (PCP) NEGATIVE (NEGATIVE) Urine Amphetamine NEGATIVE (NEGATIVE) U Benzodiazepine Level NEGATIVE (NEGATIVE) Urine Cocaine NEGATIVE (NEGATIVE) Urine Marijuana (THC) NEGATIVE (NEGATIVE) Specimen Received 04/15/180 04/15/18 04/15/18 04/15/18 Range/Units 23:10 23:10 23:10 WBC 4.1 (4.0-10.5) K/mm3 RBC 3.96 L (4.1-5.4) M/mm3 Hgb 12.8 (12.0-16.0) gm/dl Hct 35.8 (35-47) % MCV 90.4 (78-100) fl MCH 32.3 H (26-32) pg MCHC 35.8 (32-36) g/dl RDW 12.0 (11.5-14.0) % Plt Count 199 (150-450) K/mm3 MPV 10.9 H (6-9.5) fl Gran % 52.5 (36.0-66.0) % Eos # (Auto) 0.06 (0-0.5) Absolute Lymphs (auto) 1.43 (1.0-4.6) Absolute Monos (auto) 0.44 (0.0-1.3) Lymphocytes % 35.0 (24.0-44.0) % Monocytes % 10.8 (0.0-12.0) % Eosinophils % 1.5 (0.00-5.0) % Basophils % 0.2 (0.0-0.4) % Absolute Granulocytes 2.14 (1.4-6.9) Basophils # 0.01 (0-0.4) Sodium 138 (137-145) mmol/L Potassium 3.7 (3.5-5.1) mmol/L Chloride 103 (98-107) mmol/L Carbon Dioxide 27 (22-30) mmol/L Anion Gap 11.8 (5-15) MEQ/L BUN 14 (7-17) mg/dL Creatinine 0.67 (0.52-1.04) mg/dL Estimated GFR > 60.0 ML/MIN Glucose 99 (74-106) mg/dL Lactic Acid (0.4-2.0) Calcium 9.3 (8.4-10.2) mg/dL Total Bilirubin 2.00 H (0.2-1.3) mg/dL AST 21 (14-36) U/L ALT 17 (0-35) U/L Alkaline Phosphatase 48 (38-126) U/L Troponin I < 0.012 (0.000-0.034) ng/mL Serum Total Protein 7.6 (6.3-8.2) g/dL Albumin 4.3 (3.5-5.0) g/dL Amylase 66 (30-110) U/L Lipase 138 (23-300) U/L TSH 3rd Generation (0.47-4.68) mIU/L Serum , Qual (Negative) Ur Collection Type Urine Color (YELLOW) Urine Appearance (CLEAR) Urine pH (5-6) Ur Specific Shunk (1.005-1.025) Urine Protein (Negative) Urine Ketones (NEGATIVE) Urine Blood (0-5) Leroy/ul Urine Nitrite (NEGATIVE) Urine Bilirubin (NEGATIVE) Urine Urobilinogen (0-1) mg/dL Ur Leukocyte Esterase (NEGATIVE) Urine Culture Reflexed (NO) Urine Glucose (NEGATIVE) mg/dL Urine Opiates Level (NEGATIVE) Ur Methadone (NEGATIVE) Urine Barbiturates (NEGATIVE) Ur Phencyclidine (PCP) (NEGATIVE) Urine Amphetamine (NEGATIVE) U Benzodiazepine Level (NEGATIVE) Urine Cocaine (NEGATIVE) Urine Marijuana (THC) (NEGATIVE) Specimen Received 04/15/18 04/16/18 04/16/18 Range/Units 23:10 02:00 05:25 WBC (4.0-10.5) K/mm3 RBC (4.1-5.4) M/mm3 Hgb (12.0-16.0) gm/dl Hct (35-47) % MCV (78-100) fl MCH (26-32) pg MCHC (32-36) g/dl RDW (11.5-14.0) % Plt Count (150-450) K/mm3 MPV (6-9.5) fl Gran % (36.0-66.0) % Eos # (Auto) (0-0.5) Absolute Lymphs (auto) (1.0-4.6) Absolute Monos (auto) (0.0-1.3) Lymphocytes % (24.0-44.0) % Monocytes % (0.0-12.0) % Eosinophils % (0.00-5.0) % Basophils % (0.0-0.4) % Absolute Granulocytes (1.4-6.9) Basophils # (0-0.4) Sodium (137-145) mmol/L Potassium (3.5-5.1) mmol/L Chloride (98-107) mmol/L Carbon Dioxide (22-30) mmol/L Anion Gap (5-15) MEQ/L BUN (7-17) mg/dL Creatinine (0.52-1.04) mg/dL Estimated GFR ML/MIN Glucose (74-106) mg/dL Lactic Acid (0.4-2.0) Calcium (8.4-10.2) mg/dL Total Bilirubin (0.2-1.3) mg/dL AST (14-36) U/L ALT (0-35) U/L Alkaline Phosphatase (38-126) U/L Troponin I < 0.012 < 0.012 (0.000-0.034) ng/mL Serum Total Protein (6.3-8.2) g/dL Albumin (3.5-5.0) g/dL Amylase (30-110) U/L Lipase (23-300) U/L TSH 3rd Generation (0.47-4.68) mIU/L Serum , Qual NEGATIVE (Negative) Ur Collection Type Urine Color (YELLOW) Urine Appearance (CLEAR) Urine pH (5-6) Ur Specific Shunk (1.005-1.025) Urine Protein (Negative) Urine Ketones (NEGATIVE) Urine Blood (0-5) Leroy/ul Urine Nitrite (NEGATIVE) Urine Bilirubin (NEGATIVE) Urine Urobilinogen (0-1) mg/dL Ur Leukocyte Esterase (NEGATIVE) Urine Culture Reflexed (NO) Urine Glucose (NEGATIVE) mg/dL Urine Opiates Level (NEGATIVE) Ur Methadone (NEGATIVE) Urine Barbiturates (NEGATIVE) Ur Phencyclidine (PCP) (NEGATIVE) Urine Amphetamine (NEGATIVE) U Benzodiazepine Level (NEGATIVE) Urine Cocaine (NEGATIVE) Urine Marijuana (THC) (NEGATIVE) Specimen Received 04/16/18 04/16/18 04/16/18 Range/Units 05:25 05:25 05:25 WBC 4.2 (4.0-10.5) K/mm3 RBC 3.78 L (4.1-5.4) M/mm3 Hgb 12.2 (12.0-16.0) gm/dl Hct 34.5 L (35-47) % MCV 91.3 (78-100) fl MCH 32.2 H (26-32) pg MCHC 35.4 (32-36) g/dl RDW 12.0 (11.5-14.0) % Plt Count 172 (150-450) K/mm3 MPV 11.2 H (6-9.5) fl Gran % 35.0 L (36.0-66.0) % Eos # (Auto) 0.09 (0-0.5) Absolute Lymphs (auto) 2.16 (1.0-4.6) Absolute Monos (auto) 0.45 (0.0-1.3) Lymphocytes % 51.8 H (24.0-44.0) % Monocytes % 10.8 (0.0-12.0) % Eosinophils % 2.2 (0.00-5.0) % Basophils % 0.2 (0.0-0.4) % Absolute Granulocytes 1.46 (1.4-6.9) Basophils # 0.01 (0-0.4) Sodium 140 (137-145) mmol/L Potassium 4.1 (3.5-5.1) mmol/L Chloride 107 (98-107) mmol/L Carbon Dioxide 26 (22-30) mmol/L Anion Gap 11.1 (5-15) MEQ/L BUN 10 (7-17) mg/dL Creatinine 0.66 (0.52-1.04) mg/dL Estimated GFR > 60.0 ML/MIN Glucose 81 (74-106) mg/dL Lactic Acid (0.4-2.0) Calcium 8.7 (8.4-10.2) mg/dL Total Bilirubin 1.80 H (0.2-1.3) mg/dL AST 16 (14-36) U/L ALT 14 (0-35) U/L Alkaline Phosphatase 39 (38-126) U/L Troponin I (0.000-0.034) ng/mL Serum Total Protein 6.3 (6.3-8.2) g/dL Albumin 3.4 L (3.5-5.0) g/dL Amylase (30-110) U/L Lipase (23-300) U/L TSH 3rd Generation 7.850 H (0.47-4.68) mIU/L Serum , Qual (Negative) Ur Collection Type Urine Color (YELLOW) Urine Appearance (CLEAR) Urine pH (5-6) Ur Specific Shunk (1.005-1.025) Urine Protein (Negative) Urine Ketones (NEGATIVE) Urine Blood (0-5) Leroy/ul Urine Nitrite (NEGATIVE) Urine Bilirubin (NEGATIVE) Urine Urobilinogen (0-1) mg/dL Ur Leukocyte Esterase (NEGATIVE) Urine Culture Reflexed (NO) Urine Glucose (NEGATIVE) mg/dL Urine Opiates Level (NEGATIVE) Ur Methadone (NEGATIVE) Urine Barbiturates (NEGATIVE) Ur Phencyclidine (PCP) (NEGATIVE) Urine Amphetamine (NEGATIVE) U Benzodiazepine Level (NEGATIVE) Urine Cocaine (NEGATIVE) Urine Marijuana (THC) (NEGATIVE) Specimen Received 04/16/18 04/16/18 04/16/18 Range/Units 05:25 05:32 08:12 WBC (4.0-10.5) K/mm3 RBC (4.1-5.4) M/mm3 Hgb (12.0-16.0) gm/dl Hct (35-47) % MCV (78-100) fl MCH (26-32) pg MCHC (32-36) g/dl RDW (11.5-14.0) % Plt Count (150-450) K/mm3 MPV (6-9.5) fl Gran % (36.0-66.0) % Eos # (Auto) (0-0.5) Absolute Lymphs (auto) (1.0-4.6) Absolute Monos (auto) (0.0-1.3) Lymphocytes % (24.0-44.0) % Monocytes % (0.0-12.0) % Eosinophils % (0.00-5.0) % Basophils % (0.0-0.4) % Absolute Granulocytes (1.4-6.9) Basophils # (0-0.4) Sodium (137-145) mmol/L Potassium (3.5-5.1) mmol/L Chloride (98-107) mmol/L Carbon Dioxide (22-30) mmol/L Anion Gap (5-15) MEQ/L BUN (7-17) mg/dL Creatinine (0.52-1.04) mg/dL Estimated GFR ML/MIN Glucose (74-106) mg/dL Lactic Acid 0.7 (0.4-2.0) Calcium (8.4-10.2) mg/dL Total Bilirubin (0.2-1.3) mg/dL AST (14-36) U/L ALT (0-35) U/L Alkaline Phosphatase (38-126) U/L Troponin I < 0.012 (0.000-0.034) ng/mL Serum Total Protein (6.3-8.2) g/dL Albumin (3.5-5.0) g/dL Amylase 48 (30-110) U/L Lipase 104 (23-300) U/L TSH 3rd Generation (0.47-4.68) mIU/L Serum , Qual (Negative) Ur Collection Type Urine Color (YELLOW) Urine Appearance (CLEAR) Urine pH (5-6) Ur Specific Shunk (1.005-1.025) Urine Protein (Negative) Urine Ketones (NEGATIVE) Urine Blood (0-5) Leroy/ul Urine Nitrite (NEGATIVE) Urine Bilirubin (NEGATIVE) Urine Urobilinogen (0-1) mg/dL Ur Leukocyte Esterase (NEGATIVE) Urine Culture Reflexed (NO) Urine Glucose (NEGATIVE) mg/dL Urine Opiates Level (NEGATIVE) Ur Methadone (NEGATIVE) Urine Barbiturates (NEGATIVE) Ur Phencyclidine (PCP) (NEGATIVE) Urine Amphetamine (NEGATIVE) U Benzodiazepine Level (NEGATIVE) Urine Cocaine (NEGATIVE) Urine Marijuana (THC) (NEGATIVE) Specimen Received - Radiology Impressions Radiology Exams & Impressions: Radiology Procedures Category Date Time Status ABDOMEN AND PELVIS W CONTRAST [CT] Stat Exams 04/15/18 22:50 Completed Assessment/Plan (1) Vomiting Current Visit: Yes Status: Acute Qualifiers: Vomiting type: unspecified Vomiting Intractability: non-intractable Nausea presence: with nausea Qualified Code(s): R11.2 - Nausea with vomiting, unspecified Code(s): R11.10 - VOMITING, UNSPECIFIED
[2018-04-16] MEDS: Pepcid 20 MG VIAL IV SCH ×2 (09:41→22:40)
[2018-04-16] MEDS ORDERED: SYNTHROID 50 MCG PO SCH (10:00)
[2018-04-16] MEDS: SYNTHROID 75 MCG PO SCH (10:51)
[2018-04-16] MEDS ORDERED: SYNTHROID 25 MCG PO SCH (11:00)
[2018-04-16] MEDS: Ativan 2 MG/1 ML VIAL IV PRN (12:34)
[2018-04-16] MEDS: Zofran 4 MG/2 ML VIAL IV PRN ×2 (17:05→22:41)
[2018-04-17] MEDS: Norco 10/325 MG Tablet PO PRN ×2 (02:13→14:32)
[2018-04-17] MEDS: SUBLIMAZE 100 MCG/2 ML IV PRN (06:51)
[2018-04-17] MEDS: Ativan 2 MG/1 ML VIAL IV PRN (08:01)
[2018-04-17] MEDS: Sodium Chloride 0.9% 1000 ML 1,000 ML IV SCH (08:27)
--- NOTE | 2018-04-17 08:58 | PCM.NOTE ---
Date and Time: 04/17/1855 Subjective Assessment: doing ok, still not eating anything, c/o abdominal pain - Review of Systems Constitutional: No Fever, No Chills Eyes: No Symptoms Ears, Nose, & Throat: No Symptoms Respiratory: No Cough, No Short Of Breath Cardiac: No Chest Pain, No Edema, No Syncope Abdominal/Gastrointestinal: Abdominal Pain, Nausea, Vomiting, No Diarrhea Genitourinary Symptoms: No Dysuria Musculoskeletal: No Back Pain, No Neck Pain Skin: No Rash Neurological: No Dizziness, No Focal Weakness, No Sensory Changes Psychological: No Symptoms Endocrine: No Symptoms Hematologic/Lymphatic: No Symptoms Immunological/Allergic: No Symptoms Objective Exam General Appearance: no apparent distress, alert Neurologic Exam: alert, oriented x 3, cooperative, normal mood/affect, nml cerebellar function, sensation nml, No motor deficits Skin Exam: normal color, warm, dry Eye Exam: PERRL, EOMI, eyes nml inspection Ears, Nose, Throat Exam: normal ENT inspection, pharynx normal, moist mucous membranes Neck Exam: normal inspection, non-tender, supple, full range of motion Respiratory Exam: normal breath sounds, lungs clear, No respiratory distress Cardiovascular Exam: regular rate/rhythm, normal heart sounds Gastrointestinal/Abdomen Exam: soft, No tenderness, No mass Extremity Exam: normal inspection, normal range of motion Back Exam: normal inspection, normal range of motion, No CVA tenderness, No vertebral tenderness Pelvic Exam: deferred Rectal Exam: deferred OBJECTIVE DATA Vital Signs: Vital Signs - 24 hr Temp Pulse Resp BP Pulse Ox 04/17/18 07:28 98.2 F 65 16 110/56 97 04/17/18 04:57 98.1 F 80 16 92/46 97 04/16/18 23:33 98.4 F 63 16 92/50 98 04/16/18 19:40 98.2 F 83 14 90/44 98 04/16/18 15:55 98 F 64 18 93/54 98 04/16/18 11:32 98.1 F 54 L 18 85/41 95 Pain Assessment - Last Documented Pain Intensity 6 Pain Scale Used 0-10 Pain Scale Intake and Output: Intake & Output 04/14/18 04/15/18 04/16/18 04/17/18 11:59 11:59 11:59 11:59 Intake Total 0 2705 Output Total 2500 Balance 0 205 Weight 74.9 kg Lab Results: Lab Results-Last 24 Hours 04/16/18 04/16/18 04/16/18 Range/Units 05:25 08:12 11:04 Troponin I < 0.012 < 0.012 (0.000-0.034) ng/mL Amylase 48 (30-110) U/L Lipase 104 (23-300) U/L Radiology Exams: Radiology Procedures Category Date Time Status ABDOMEN AND PELVIS W CONTRAST [CT] Stat Exams 04/15/18 22:50 Completed Multi-Disciplinary Progress Notes: Multi-Disciplinary Progress Notes 04/16/18 12:15 (created 04/16/18 12:28) Case Management Note by Patito Haas DR. ROUNDED AND EVALUATED. LONG DISCUSSION WITH PT AND FAMILY REGARDING DX AND TREATMENT. FAMILY VERBALIZED UNDERSTANDING AND ABLE TO REPEAT INFORMATION BACK. PT REPORTS THAT SHE IS REALLY WANTING TO GO HOME. DR. DA SILVA REPORTS THAT WILL START CLEAR LIQUIDS, IF ABLE TO TOLERATE FOR 3-4 HOURS THEN PT MAY GO HOME. DISCUSSED WITH PT THAT IF SHE GOES HOME SHE WILL NEED TO STAY ON FULL LIQUIDS AND ADVANCE DIET SLOWLY, ALSO, ENCOURAGED NOT TO EAT FATTY FOODS. DENIES ADDNL NEEDS FOR DISCHARGE. NORMALLY INDEPENDENT WITH ADL'S. FAMILY AT BEDSIDE. Initialized on 04/16/18 12:28 - END OF NOTE Assessment/Plan (1) Vomiting Current Visit: Yes Status: Acute Onset Date: ~04/17/18 Qualifiers: Vomiting type: unspecified Vomiting Intractability: non-intractable Nausea presence: with nausea Qualified Code(s): R11.2 - Nausea with vomiting, unspecified Code(s): R11.10 - VOMITING, UNSPECIFIED (2) Abdominal pain Current Visit: Yes Status: Acute Qualifiers: Abdominal location: epigastric Qualified Code(s): R10.13 - Epigastric pain Code(s): R10.9 - UNSPECIFIED ABDOMINAL PAIN
[2018-04-17] MEDS ORDERED: PROTONIX 40 MG IV IV ONE (08:59)
[2018-04-17] MEDS: SYNTHROID 75 MCG PO SCH (09:53)
[2018-04-17] MEDS: Pepcid 20 MG VIAL IV SCH (09:53)
[2018-04-17 10:09] LABS: ALBUMIN 3.6 g/dL (3.5-5.0); ALKALINE PHOSPHATASE 41 U/L (38-126); AMYLASE 68 U/L (30-110); ANION GAP 16.5 MEQ/L (5-15); BLOOD UREA NITROGEN 9 mg/dL (7-17); CHLORIDE 109 mmol/L (98-107); Calcium 8.4 mg/dL (8.4-10.2); Carbon Dioxide 17 mmol/L (22-30); Creatinine 1 0.65 mg/dL (0.52-1.04); LIPASE 226 U/L (23-300); Potassium 4.1 mmol/L (3.5-5.1); SGOT/AST 18 U/L (14-36); SGPT/ALT 14 U/L (0-35); SODIUM 138 mmol/L (137-145); Total Protein 6.7 g/dL (6.3-8.2)
[2018-04-17] MEDS: Zofran 4 MG/2 ML VIAL IV PRN (10:14)
[2018-04-17 10:20] LABS: Glucose 39 mg/dL (74-106)
[2018-04-17] MEDS ORDERED: Glutose 15 GM ORAL GEL PO ONE ×2 (10:21→10:30)
[2018-04-17] MEDS: Dextrose 5%-NS IV Solution 1000 ML 1,000 ML IV SCH ×2 (10:52→16:13)
--- NOTE | 2018-04-17 12:44 | XRAY ---
Exam: CT of the abdomen and pelvis without and with IV contrast from 04/17/2018. CTDI: 27.29 Comparison: CT of the abdomen and pelvis with IV contrast from 04/16/2018. Indication: 32-year-old female with enteritis, nausea/vomiting. The patient has history of prior cholecystectomy, tubal ligation, and a bladder procedure. Technique: Non-IV contrast axial images were obtained through the abdomen down to the upper pelvis. Oral contrast was given as well. Subsequently, post IV contrast axial images were obtained through the abdomen and pelvis during and following automated injection of 80 cc of Isovue-370 contrast material. Reconstructed coronal and sagittal images were created and reviewed. In addition, delayed images were obtained through the kidneys, ureters, and bladder. Findings: I believe there is a tiny granuloma at the lateral right lung base on image #1. Scant linear atelectasis is seen within the posterior lung sulci. No posterior pleural fluid or infiltrate is seen. The heart size is normal. The remainder of the non-IV contrast study reveals surgical clips within the right upper quadrant consistent with prior cholecystectomy. I see no renal calculi or hydronephrosis. Most of the oral contrast is seen within the stomach and proximal duodenum. However, there is a minimal amount of contrast seen within the right lower quadrant in the cecum. Incidentally, the appendix appears unremarkable. The liver and spleen are remarkable only for a single calcified splenic granuloma. No biliary duct distention is seen. The pancreas appears normal. The adrenal glands are of normal size and configuration. Both kidneys function on delayed images. There is no evidence of renal mass or hydronephrosis. The ureters and urinary bladder are remarkable for significant distention of the urinary bladder which rises to the upper L5 level on the midline sagittal image. This measures at least 16.2 cm in height, 7.9 cm in AP dimension, and 11.1 cm in width. Correlate clinically regarding the need for bladder decompression. The abdominal aorta reveals no aneurysm. No abnormal retroperitoneal lymphadenopathy is seen. There is no evidence of free intraperitoneal air. No ventral bowel containing hernia is seen. The bowel appears nonobstructed. The appendix appears of normal diameter and reveals no appendiceal wall thickening. I again see mild accentuation of the markings within the small bowel mesentery which could represent edema. This is nonspecific. Consider enteritis. The uterus is anteflexed. I note a 1.8 cm in diameter dominant follicle or small ovarian cyst on axial image #50 of series #3. This is similar to yesterday's CT scan. No other pelvic adnexal abnormality is seen. No enlarged pelvic lymph nodes are seen. The left ovary appears unremarkable. No significant free intraperitoneal fluid is seen. There may be a tiny amount of nonspecific free fluid. This is unchanged. A few tiny calcified phleboliths are seen within the lower pelvis. The skeleton reveals no acute fracture or aggressive bone lesion. Impression: 1. There is significant urinary bladder distention which extends to the upper aspect of L5, as discussed above. Consider urinary bladder decompression with a Mays catheter if the patient is unable to void. 2. I see no evidence of bowel obstruction. There again appears to be mild increased markings within the small bowel mesentery which might represent some nonspecific mesenteric edema. Consider enteritis. 3. Status post cholecystectomy. 4. I see no findings to suggest acute appendicitis. 5. 1.8 cm in diameter dominant follicle versus small cyst within right ovary. This is similar to yesterday's CT study. 6. No other acute process is seen within the abdomen or pelvis.
[2018-04-17 16:47] VITALS: BP 105/56; PULSE 76; O2SAT 98
== END 2018-04-17 17:40 | disposition home or self-care (01) ==
LOC: ED 22:34 → UNDOADMOB 04-16 03:00 → MED SURG 04-16 03:00 → INTOOBSV 04-17 08:55 → OBSVTOIN 04-17 08:55 → UNDODISOB 04-17 17:40
PROVIDERS: ADMIT General Practice; ATTEND General Practice
DX: R11.2 Nausea with vomiting, unspecified (principal); R10.10 Upper abdominal pain, unspecified; Z79.899 Other long term (current) drug therapy
CPT/HCPCS: 36415; 74177; 74178; 80053; 80307; 81002; 82150; 82947; 83605; 83690; 84443; 84484; 84703; 85025; 93005; 96360; 96374; 96375; 96376; 99285; G0378; J2060; J2405; J3010; A9270-GY

== ENCOUNTER 2023-05-29 18:27 | Emergency (ER) | payer MEDICARE ==
[2023-05-29] MEDS ORDERED: Adacel Vial IM ONE ×2 (19:10→19:52)
--- NOTE | 2023-05-29 19:17 | ERPHSYRPT ---
- History of Present Illness Time Seen by Provider: 05/29/23 19:12 Source: patient, family, EMS Exam Limitations: no limitations Patient Subjective Stated Complaint: pt here for press tender incendiary grenade blade to left index finger, no bledding noted Triage Nursing Assessment: pt alert, walked in, in pain, resp easy, skin w/d/p, has press tender incendiary grenade blade imbedded to left index finger Physician History: pt impaled left index finger on mixer blade. Our ring cutter could not penetrate the metal so we called EMS for assistance and they were able to cut the blade off after which the blade came out easily. This wound is just proximal to the dispa extensor joint. flex/ext prox and distal phalanx all intact. Discussed with pt the some injury of the extensor tendon is still likely and needs f/u ortho. discussed leaving wound open to drain since at risk for infection and pt wishes to proceed with this strategy. There is some decreased sensation which I explained to pt and family may be nerve injury and this needs f/u with PMD/ortho. The risks and benefits or TDAP and x-ray were discussed with pt and family and they wish to proceed and these were ordered, x-ray discussed with pt and family after results. Occurred: just prior to arrival Method of Injury: incised Quality: constant Severity of Pain-Max: moderate Severity of Pain-Current: moderate Extremities Pain Location: 2nd finger: left Modifying Factors: Improves With: movement Associated Symptoms: none Allergies/Adverse Reactions: No Known Drug Allergies Allergy (Verified 05/29/23 18:33) Hx Tetanus, Diphtheria Vaccination/Date Given: No Hx Influenza Vaccination/Date Given: No Hx Pneumococcal Vaccination/Date Given: No Immunizations Up to Date: Yes Travel Risk - International Travel Have you traveled outside of the country in past 3 weeks: No - Coronavirus Screening Are you exhibiting any of the following symptoms?: No Close contact with a COVID-19 positive Pt in past 14-21 Days: No - Vaccine Status Have you recieved a Covid-19 vaccination: No - Review of Systems Constitutional: No Fever, No Chills Eyes: No Symptoms Ears, Nose, & Throat: No Symptoms Respiratory: No Cough, No Dyspnea Cardiac: No Chest Pain, No Edema, No Syncope Abdominal/Gastrointestinal: No Abdominal Pain, No Nausea, No Vomiting, No Diarrhea Genitourinary Symptoms: No Dysuria Musculoskeletal: No Back Pain, No Neck Pain Skin: Other (lac), No Rash Neurological: No Dizziness, No Focal Weakness, No Sensory Changes Psychological: No Symptoms Endocrine: No Symptoms Hematologic/Lymphatic: No Symptoms Immunological/Allergic: No Symptoms All Other Systems: Reviewed and Negative - Past Medical History Pertinent Past Medical History: Yes Neurological History: Other ENT History: Other Cardiac History: No Pertinent History Respiratory History: No Pertinent History Endocrine Medical History: Hypothyroidism Musculoskeletal History: No Pertinent History GI Medical History: Other History: No Pertinent History Psycho-Social History: No Pertinent History Female Reproductive Disorders: No Pertinent History Other Medical History: 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 legally blind - Past Surgical History Past Surgical History: Yes Neuro Surgical History: No Pertinent History Cardiac: No Pertinent History Respiratory: No Pertinent History Gastrointestinal: Other Genitourinary: No Pertinent History Musculoskeletal: No Pertinent History Female Surgical History: Tubal Ligation, Other Other Surgical History: vaginal reconstruction. tubal. sphincterotomy - Social History Smoking Status: Never smoker Exposure to second hand smoke: No Drug Use: none Patient Lives Alone: No - Female History Hx Last Menstrual Period: 3 weks ago Hx Now: No - Nursing Vital Signs Nursing Vital Signs: Initial Vital Signs Temperature 97.4 F 05/29/23 19:13 Pulse Rate 80 05/29/23 19:13 Respiratory Rate 18 05/29/23 19:13 Blood Pressure 105/66 05/29/23 19:13 O2 Sat by Pulse Oximetry 99 05/29/23 19:13 Pain Scale Pain Intensity 2 - Physical Exam General Appearance: alert Eyes, Ears, Nose, Throat Exam: moist mucous membranes Neck Exam: non-tender, supple Cardiovascular/Respiratory Exam: chest non-tender, normal breath sounds, regular rate/rhythm, no respiratory distress Abdominal Exam: non-tender, No guarding Back Exam: normal inspection, No vertebral tenderness Shoulder Exam: normal inspection, non-tender, no evidence of injury, normal ROM Elbow/Forearm Exam: normal inspection, non-tender, no evidence of injury, normal ROM Wrist Exam: normal inspection, non-tender, no evidence of injury, normal ROM Hand Exam: bone tenderness, laceration DTR - Upper Extremity Exam: bicep (R): 2+, bicep (L): 2+, tricep (R): 2+, tricep (L): 2+ Neuro/Tendon Exam: normal motor functions, normal tendon functions, sensory deficit (tip of left index) Mental Status Exam: alert, oriented x 3, cooperative Skin Exam: normal color, warm, dry - Course Nursing assessment & vital signs reviewed: Yes - Radiology Exams Left Hand X-ray Interpretation: Reviewed by me, Discussed w/ radiologist, No Fracture, Other (excluding penetration by rad overreading and none reported on that reading by radiologist) Ordered Tests: Active Orders 24 hr Category Date Time Status HAND (MINIMUM 3 VIEWS) Stat Exams 05/29/23 19:11 Completed Medication Summary Discontinued Medications Generic Name Dose Route Start Last Admin Trade Name Freq PRN Reason Stop Dose Admin Diphtheria/Tetanus/Acell Pertussis 0.5 ml 05/29/23 19:10 05/29/23 19:53 Tdap --Diph,Pertuss(Acell),Tet Vac/Pf 0.5 Ml Vial IM 05/29/23 19:11 0.5 ml .ONCE ONE Administration Diphtheria/Tetanus/Acell Pertussis Confirm 05/29/23 19:52 Tdap --Diph,Pertuss(Acell),Tet Vac/Pf 0.5 Ml Vial Administered 05/29/23 19:53 Dose 0.5 ml IM .STK-MED ONE - Progress Progress: improved, re-examined Progress Note: 05/29/23 21:48 discussed risks/benefits of antibiotics and pt wishes to proceed . also discussed risks/benefits of leaving lac open to promote drainage and she prefers this to stitches and has the capacity to make this choice. 05/29/23 21:50 consulted radiologist for telereading Counseled pt/family regarding: diagnosis, need for follow-up, rad results Medical Desision Making - Independent Historian Additional History obtained from: Family - Discussion of managment Care discussed with:: specialist (radiologist) Agreed on:: need for follow-up - Diagnostic Testing Diagnostic test were ordered, analyzed, and reviewed by me: Yes Radiological Interpretation: Reviewed by me, Teleradiologist Report - Risk of complications The pt has a mod risk of morbidity or mortality based on: Need for prescription drug management - Departure Departure Disposition: Home Clinical Impression: impaled left index finger with nerve inj, laceration in area of extensor tendon, neuroparaxia or digital nerve laceration Condition: Good Critical Care Time: No Referrals: REKHA,NICOLE, MD [Primary Care Provider] - Follow up/PCP as directed Instructions: Wound Care (DC) Additional Instructions: Soak the finger in epsom salts twice a day and apply the antibiotic ointment until healed. follow up with your Dr. and orthopedic as there could be delayed complications including infection and there is likely some injury to both the extensor tendon and the digital nerve. The tendon has retained function and may heal without intervention but should be follow up. the nerve may also heal and take time. return meantime if redness, drainage, increased pain or other concerns. Prescriptions: Mupirocin [Bactroban OINTMENT] 22 gm TP BID #1 cartridge Cephalexin Mh 500 mg [Keflex 500 mg] 500 mg PO TID 7 Days #30 cap
[2023-05-29 20:36] VITALS: TEMP 98.2
[2023-05-29 20:40] VITALS: BP 109/61; PULSE 78; RESP 20; O2SAT 100
--- NOTE | 2023-05-29 21:13 | XRAY ---
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 TECHNIQUE:X-ray left hand, PA, lateral, and oblique views. FINDINGS: No acute fracture or dislocation. The intercarpal, carpometacarpal, metacarpophalangeal, and interphalangeal joints are well maintained. Bone density is within normal limits. Cortical margins and trabecular markings of the osseous structures are unremarkable. IMPRESSION: 1. No acute osseous findings. 2. Normal X-ray of the left hand. DISCLAIMER:A subtle bone abnormality or fracture may not be readily apparent on x-rays, thus clinical correlation and further imaging including follow-up CT, MRI, or follow-up x-rays are advised as needed Electronically Signed by: Rebekah Day MD. (05/29/2023 20:11:57 AUDIT LEAD)
[2023-05-29] MEDS ORDERED: KEFLEX 500 MG PO ONE (21:53)
[2023-05-29] MEDS ORDERED: KEFLEX 500 MG ONE (22:02)
[2023-05-29] MEDS ORDERED: BACIGUENT PACKET ONE (22:04)
== END 2023-05-29 22:14 | disposition home or self-care (01) ==
LOC: ED 18:27
DX: S61.241A Puncture wound with foreign body of left index finger without damage to nail, initial encounter (principal); S64.491A Injury of digital nerve of left index finger, initial encounter; W45.8XXA Other foreign body or object entering through skin, initial encounter; W29.0XXA Contact with powered kitchen appliance, initial encounter; Z28.310 Unvaccinated for COVID-19; Z23 Encounter for immunization
CPT/HCPCS: 73130; 90471; 90715; 99283; A9270-GY